=== PATIENT | female | born 1990 | race Caucasian/White ===

== ENCOUNTER 2019-07-05 21:42 | Observation (INO) | payer BC ==
[2019-07-05 22:21] LABS: Appearance CLOUDY (CLEAR); Bacteria RARE /HPF (NEGATIVE); Bilirubin NEGATIVE (NEGATIVE); Blood NEGATIVE Ery/ul (0-5); Epithelial Cells RARE /HPF (FEW); Glucose 50 mg/dL (NEGATIVE); Ketones NEGATIVE (NEGATIVE); Leukocyte Esterase NEGATIVE (NEGATIVE); Mucus SLIGHT /HPF (NEGATIVE); Nitrite NEGATIVE (NEGATIVE); Protein,Urine Dip NEGATIVE (Negative); Specific Gravity 1.012 (1.005-1.025); Urobilinogen NEGATIVE mg/dL (0-1); WBC 0-2 /HPF (0-5)
[2019-07-05 22:22] LABS: Budding Yeast Rare /HPF (NEGATIVE)
[2019-07-05 22:47] VITALS: PULSE 122
[2019-07-05 22:50] VITALS: BP 140/91
== END 2019-07-05 23:40 | disposition home or self-care (01) ==
LOC: OB 21:42
PROVIDERS: ADMIT Family Medicine; ATTEND Family Medicine
DX: Z34.83 Encounter for supervision of other normal pregnancy, third trimester (principal)
CPT/HCPCS: 81001; 83986; 87086; G0378

== ENCOUNTER 2019-07-17 07:19 | Observation (INO) | payer BC ==
[2019-07-17 08:26] LABS: Amphetamine,Urine NEGATIVE (NEGATIVE); Barbiturate,Urine NEGATIVE (NEGATIVE); Benzodiazepine,Urine NEGATIVE (NEGATIVE); Cocaine,Urine NEGATIVE (NEGATIVE); Methadone,Urine NEGATIVE (NEGATIVE); Opiate,Urine NEGATIVE (NEGATIVE); PCP,Urine NEGATIVE (NEGATIVE); THC,Urine NEGATIVE (NEGATIVE)
[2019-07-17 12:19] VITALS: BP 130/83; PULSE 93
== END 2019-07-17 12:15 | disposition home or self-care (01) ==
LOC: OB 07:19
PROVIDERS: ADMIT Family Medicine; ATTEND Family Medicine
DX: Z34.83 Encounter for supervision of other normal pregnancy, third trimester (principal)
CPT/HCPCS: 80307; G0378

== ENCOUNTER 2019-07-17 14:00 | Inpatient (IN) | payer BC ==
[2019-07-18] MEDS ORDERED: Reglan 10 MG/2 ML IV SCH (06:00)
[2019-07-18] MEDS ORDERED: BICITRA 30 ML CUP PO SCH (06:00)
[2019-07-18] MEDS ORDERED: Lactated Ringers 1,000 ML IV SCH ×2 (06:00→06:30)
[2019-07-18] MEDS ORDERED: Pepcid 20 MG VIAL IV SCH (06:00)
[2019-07-18] MEDS ORDERED: CLINDAMYCIN-D5W 900 MG/50 ML*** 900 MG/50 ML BAG IV ONE (06:17)
[2019-07-18] MEDS ORDERED: CLINDAMYCIN-D5W 900 MG/50 ML*** 900 MG/50 ML BAG IV SCH (06:30)
[2019-07-18 06:31] LABS: Hematocrit 37.1 % (35-47); Hemoglobin 12.6 gm/dl (12.0-16.0); Mean Cell Volume 92.8 fl (78-100); Mean Corpuscular Hemoglobin 31.5 pg (26-32); Mean Platelet Volume 12.8 fl (7.5-11.0); Platelet Count 116 K/mm3 (150-450); Red Cell Distribution Width 14.3 % (11.5-14.0); White Blood Count 13.7 K/mm3 (4.0-10.5)
[2019-07-18 06:37] LABS: INR 1.13 (0.8-3.0); PROTIME 12.8 SECONDS (9.95-12.35)
[2019-07-18 06:40] LABS: PTT 27.1 SECONDS (25.3-37.0)
[2019-07-18] MEDS ORDERED: Astramorph-Pf 5 MG/10 ML ONE (06:40)
[2019-07-18] MEDS ORDERED: Pitocin 10 UNITS/ML ONE ×2 (06:41→07:56)
[2019-07-18] MEDS ORDERED: PHENYLEPHRINE HCL ONE (06:42)
[2019-07-18 06:44] LABS: Appearance CLOUDY (CLEAR); Bacteria FEW /HPF (NEGATIVE); Bilirubin NEGATIVE (NEGATIVE); Blood SMALL Ery/ul (0-5); Epithelial Cells RARE /HPF (FEW); Glucose NEGATIVE (NEGATIVE); Ketones NEGATIVE (NEGATIVE); Leukocyte Esterase NEGATIVE (NEGATIVE); Mucus SLIGHT /HPF (NEGATIVE); Nitrite NEGATIVE (NEGATIVE); Protein,Urine Dip NEGATIVE (Negative); RBC 0-2 /HPF (0-2); Specific Gravity 1.014 (1.005-1.025); Urobilinogen NEGATIVE mg/dL (0-1); WBC 0-2 /HPF (0-5)
[2019-07-18 06:50] LABS: Budding Yeast Few /HPF (NEGATIVE)
[2019-07-18 07:12] LABS: Amphetamine,Urine NEGATIVE (NEGATIVE); Barbiturate,Urine NEGATIVE (NEGATIVE); Benzodiazepine,Urine NEGATIVE (NEGATIVE); Cocaine,Urine NEGATIVE (NEGATIVE); Methadone,Urine NEGATIVE (NEGATIVE); Opiate,Urine NEGATIVE (NEGATIVE); PCP,Urine NEGATIVE (NEGATIVE); THC,Urine NEGATIVE (NEGATIVE)
[2019-07-18] MEDS ORDERED: Ephedrine Sulfate 50 MG/ML ONE (07:24)
[2019-07-18 07:25] LABS: ABO TYPING A; Antibody Screen NEGATIVE (NEGATIVE); RH TYPING NEGATIVE
[2019-07-18] MEDS ORDERED: Lactated Ringers 1,000 ML IV ONE (07:46)
[2019-07-18] MEDS ORDERED: Marcaine 0.5%/Epinephrine 10 ML ONE (07:53)
[2019-07-18] MEDS ORDERED: MARCAINE 0.5%-EPI 1:200,000 VL IJ ONE (07:53)
[2019-07-18] MEDS ORDERED: CLARITIN 10 MG PO PRN (08:00)
[2019-07-18] MEDS ORDERED: Zofran 4 MG/2 ML VIAL IV PRN (08:00)
[2019-07-18] MEDS ORDERED: Compazine 10 MG/2 ML ONE (08:43)
[2019-07-18] MEDS ORDERED: BENADRYL 50 MG/ML IV PRN (09:00)
[2019-07-18] MEDS ORDERED: Sodium Chloride 0.9% 10 ML FLUSH Syringe IJ PRN (09:00)
[2019-07-18] MEDS ORDERED: Nubain 10 MG/ML IV PRN (09:00)
[2019-07-18] MEDS ORDERED: TYLENOL EXTRA STRENGTH 500 MG PO PRN (09:00)
[2019-07-18] MEDS ORDERED: HOLD NARCOTIC ANALGESICS AND SEDATIVES X24 HR MC PRN (09:00)
[2019-07-18] MEDS ORDERED: LANSINOH 40 GM TOP PRN (09:00)
[2019-07-18] MEDS ORDERED: PERCOCET TABLET 5/325MG PO PRN (09:00)
[2019-07-18] MEDS ORDERED: Mylicon 80MG PO PRN (09:00)
--- NOTE | 2019-07-18 09:35 | OP ---
SURGERY DATE/TIME: 07/18/2019 0711 PREOPERATIVE DIAGNOSES: 1) Term intrauterine . 2) History of prior section. 3) Desires permanent sterilization. POSTOPERATIVE DIAGNOSES: 1) Term intrauterine . 2) History of prior section. 3) Desires permanent sterilization. PROCEDURES: 1) Repeat low transverse section. 2) Bilateral tubal ligation. SURGEON: Puneet Amaro M.D. ESTIMATED BLOOD LOSS: 300 cc. IV FLUIDS: 2 liters of crystalloid. URINE OUTPUT: 50 cc of clear straw-colored urine. ANESTHESIA: Spinal by Taqueria Thomas CRNA. SPECIMENS: Bilateral fallopian tube segments. DESCRIPTION OF PROCEDURE: After informed written consent was obtained, the patient was taken to the operating room. She underwent spinal anesthesia and was prepped and draped in the usual sterile fashion. She received IV Clindamycin preoperatively. After adequate level of anesthesia was assessed, a low transverse skin incision was made by knife and carried down to the level of the subcutaneous fat to the level of the fascia. The fascia was nicked on both sides of the midline and extended horizontal using curved Luong scissors. The superior edge of the fascia was grasped with Cinda clamps and the underlying rectus muscles were dissected free. The same was repeated inferiorly. The peritoneal cavity was opened and extended in horizontal fashion bluntly. Bladder blade was then inserted and flap was created and reflected over the lower uterine segment. A horizontal uterine incision was made by knife and carried down to the level of the amniotic membranes which were carefully artificially ruptured revealing copious amounts of amniotic fluid. A viable female was delivered from the vertex presentation with a strong cry upon delivery. The oropharynx and nares were bulb suctioned free. Cord was clamped and cut. She was handed off to the awaiting nursery team. Next, the placenta was manually extracted and the uterus was exteriorized. The uterine cavity was sponge curetted clean with a lap sponge. Next, the uterine incision was closed with #1 chromic in a running locked fashion. Good closure and good hemostasis were achieved. The left fallopian tube was identified and carried down to the fimbrial edge which was grasped with a Jennifer. A window was made in the mesoappendix and the proximal and distal tube segments were ligated with chromic tie. The interceding tube segment was dissected free with Metzenbaum scissors and then the free edge of the tube cauterized with electrocautery. The same was repeated on the right side. Both tube segments were sent for pathology. The posterior cul-de-sac was wiped free of blood and clot with a moist lap sponge. The uterus was returned to the peritoneal cavity. Lateral gutters were wiped free of blood and clot with moist lap sponges. Uterine incision was again inspected and noted to have good closure and good hemostasis. Next, the fascia was closed with 0 Vicryl in a running fashion with good closure and good hemostasis were achieved. The subcutaneous fat was then irrigated with warm, sterile saline and finally the skin layer was closed with 4-0 undyed Vicryl in a running subcuticular fashion. Steri-Strips and occlusive dressing were placed over the incision. The patient was transferred to recovery in good condition.
[2019-07-18] MEDS: Dextrose 5%-Lr IV Solution 1000 ML 1,000 ML IV SCH ×2 (09:38→17:55)
[2019-07-18 09:55] LABS: Appearance CLOUDY (CLEAR); Bacteria RARE /HPF (NEGATIVE); Bilirubin NEGATIVE (NEGATIVE); Blood MODERATE Ery/ul (0-5); Crystals Unidentified 25-50 /HPF (NEGATIVE); Epithelial Cells FEW /HPF (FEW); Glucose NEGATIVE (NEGATIVE); Ketones NEGATIVE (NEGATIVE); Leukocyte Esterase NEGATIVE (NEGATIVE); Mucus MODERATE /HPF (NEGATIVE); Nitrite NEGATIVE (NEGATIVE); Protein,Urine Dip 30 (Negative); RBC 51-100 /HPF (0-2); Specific Gravity 1.019 (1.005-1.025); Urobilinogen NEGATIVE mg/dL (0-1)
[2019-07-18 09:56] LABS: Budding Yeast Few /HPF (NEGATIVE)
[2019-07-18] MEDS ORDERED: Sensorcaine 0.25% 10 ML ONE (11:46)
[2019-07-18] MEDS: MOTRIN 400 MG PO PRN (19:03)
[2019-07-18] MEDS: Colace 100 MG PO SCH (22:30)
[2019-07-19] MEDS: NORCO 5/325 MG PO PRN ×5 (02:58→20:40)
[2019-07-19 05:01] LABS: Hematocrit 31.9 % (35-47); Hemoglobin 10.5 gm/dl (12.0-16.0); Mean Cell Volume 93.5 fl (78-100); Mean Corpuscular Hemoglobin 30.8 pg (26-32); Mean Corpuscular Hgb Concent. 32.9 g/dl (32-36); Mean Platelet Volume 12.4 fl (7.5-11.0); Platelet Count 164 K/mm3 (150-450); Red Blood Count 3.41 M/mm3 (4.1-5.4); Red Cell Distribution Width 14.4 % (11.5-14.0); White Blood Count 13.7 K/mm3 (4.0-10.5)
[2019-07-19 05:20] LABS: Eosinophil 1 % (0.00-3.0); Lymphocytes 20 % (24-44); Monocyte 7 % (0.0-12.0); Neutrophils 72 % (36.0-66.0); Platelet Estimate NORMAL (NORMAL); Total Cells Counted 100
[2019-07-19] MEDS: FERREX 150 PO SCH (09:27)
[2019-07-19] MEDS: Colace 100 MG PO SCH ×2 (09:27→20:41)
[2019-07-19] MEDS: MOTRIN 400 MG PO PRN (18:34)
[2019-07-19 22:04] VITALS: O2SAT 98
[2019-07-20] MEDS: MOTRIN 400 MG PO PRN ×2 (00:35→06:52)
[2019-07-20] MEDS: NORCO 5/325 MG PO PRN ×2 (03:28→09:12)
--- NOTE | 2019-07-20 08:07 | PCM.DS ---
Discharge Summary Date of Admission: 07/18/19 04:49 Admitting Physician: RASHARD REGALADO Consults: Consults on Case 07/18/19 05:30 Notify Physician OF ADMISSION Primary Care Provider: RASHARD REGALADO Allergies Allergies ceftriaxone sodium [From Rocephin] Allergy (Verified 07/17/19 07:50) Hospital Summary - Hospital Course Hospital Course: patient had repeat + tubal ligation, no problems postoperative and doing great. - Vitals & Intake/Output Vital Signs: Vital Signs Temperature 97.8 F 07/20/19 03:15 Pulse Rate 78 07/20/19 03:15 Respiratory Rate 18 07/20/19 03:15 Blood Pressure 132/63 07/20/19 03:15 O2 Sat by Pulse Oximetry 98 07/19/19 21:30 Intake & Output: Intake & Output 07/17/19 07/18/19 07/19/19 07/20/19 11:59 11:59 11:59 11:59 Output Total 750 Balance -750 Weight 114.305 kg - Lab Result Diagrams: 07/19/19 04:18 Micro Results-Entire Visit: Microbiology 07/18/19 07:28 Urine Culture - Final Urine, Catheterized NO GROWTH - Procedures and Test Procedures and Tests throughout Hospitalization: Therapy Orders & Screens 07/18/19 08:15 Standby Routine Comment: Diagnosis: REPEAT Discharge Exam General Appearance: no apparent distress, alert Respiratory Exam: normal breath sounds, lungs clear, No respiratory distress Cardiovascular Exam: regular rate/rhythm, normal heart sounds Gastrointestinal/Abdomen Exam: soft, other (incision clean,dry, intact, well approximated) Extremity Exam: normal inspection, normal range of motion Skin Exam: normal color, warm, dry Final Diagnosis/Problem List - Final Discharge Diagnosis/Problem (1) delivery delivered Current Visit: No Status: Acute Code(s): O82 - ENCOUNTER FOR DELIVERY WITHOUT INDICATION (2) Tubal ligation status Current Visit: Yes Status: Acute Code(s): Z98.51 - TUBAL LIGATION STATUS - Discharge Disposition: Home, Self-Care Condition: Stable Prescriptions: New Hydrocodone/APAP 5-325 Tab^^^ [[place] 5-325 Tablet^^^] 1 tab PO Q6HPRN PRN # 28 tablet MDD 6 PRN Reason: Pain Continue Famotidine 20 mg [Pepcid 20 MG] 20 mg PO DAILY Ferrous Sulfate 325 mg PO DAILY Vits W-Ca,Fe,FA(<1Mg) [] 1 tab PO DAILY Follow up with: RASHARD REGALADO MD [Primary Care Provider] - 1 Week
[2019-07-20] MEDS: Colace 100 MG PO SCH (09:12)
[2019-07-20] MEDS: FERREX 150 PO SCH (09:12)
[2019-07-20 13:48] VITALS: BP 116/75; PULSE 85
== END 2019-07-20 11:00 | disposition home or self-care (01) | DRG 785 ==
LOC: OB 07-18 04:49
PROVIDERS: ADMIT Family Medicine; ATTEND Family Medicine
PROC: 10D00Z1 Extraction of Products of Conception, Low, Open Approach (ICD-10-PCS; principal; 2019-07-18)
PROC: 0UT70ZZ Resection of Bilateral Fallopian Tubes, Open Approach (ICD-10-PCS; 2019-07-18)
DX: O34.211 Maternal care for low transverse scar from previous cesarean delivery (principal); Z3A.39 39 weeks gestation of pregnancy; Z37.0 Single live birth; Z30.2 Encounter for sterilization
CPT/HCPCS: 36415; 62322; 64488; 76937; 76942; 80307; 81001; 85025; 85027; 85610; 85730; 86850; 86900; 86901; 87086; 87340; 94799; J2274; J2370; J2590; L0625; A9270-GY